=== PATIENT | male | born 1975 | race Caucasian/White ===

== ENCOUNTER → 2023-09-15 00:45 | Outpatient (REF) | payer OTHER, SELFPAY | LOC: DHSLP 00:45 | PROVIDERS: ATTENDING PHYSICIAN Internal Medicine; FAMILY PHYSICIAN Emergency Medicine | DX: G47.33 Obstructive sleep apnea (adult) (pediatric) (principal) | CPT/HCPCS: 95800 ==

== ENCOUNTER → 2024-05-16 06:32 | Outpatient (REF) | payer OTHER, SELFPAY | LOC: RAD 06:32 | PROVIDERS: ATTENDING PHYSICIAN Specialist; FAMILY PHYSICIAN Family Medicine | DX: N13.30 Unspecified hydronephrosis (principal) | CPT/HCPCS: 76770 ==

== ENCOUNTER 2024-09-20 12:52 | Emergency (ER) | payer OTHER, SELFPAY ==
[2024-09-20] VITALS (8 sets, daily range): BP systolic 112–181; BP diastolic 71–91; BMI 29.3
[2024-09-20 13:15] LABS: % Basophils 0.5 % (0-2); % Eosinophils 0.4 % (0-6); % Immature Granulocytes 0.4 % (0-0.5); % Lymphocytes 19.7 % (20.5-51.1); % Monocytes 7.3 % (1.7-9.3); % Neutrophils 71.7 % (42.2-75.2); Absolute Lymphocytes 1.5 10^3/uL (1.2-3.4); Absolute Monocytes 0.5 10^3/uL (0.1-0.6); Absolute Neutrophils 5.3 10^3/uL (1.4-6.5); Hematocrit 46.8 % (39.0-52.0); Hemoglobin 16.1 g/dL (13.0-18.0); Mean Corp Hgb Conc. 34.4 g/dL (33.0-37.0); Mean Corpuscular Hgb 30.7 pg (27.0-31.0); Mean Corpuscular Volume 89.1 fL (80.0-94.0); Mean Platelet Volume 10.7 fL (7.4-10.4); Nucleated Red Blood Cells % 0 % (-); Platelet Count 197 10^3/uL (130-400); Red Blood Cell Count 5.25 10^6/uL (4.70-6.10); Red Cell Dist. Width 12.2 % (11.5-14.5); White Blood Cell Count 7.4 10^3/uL (4.8-10.8)
[2024-09-20 13:32] LABS: ALT (SGPT) 40 U/L (0-50); AST (SGOT) 31 U/L (17-59); Albumin 4.6 g/dl (3.5-5.0); Alkaline Phosphatase 63 U/L (38-126); Blood Urea Nitrogen 16 mg/dl (9-20); Calcium 9.4 mg/dl (8.4-10.2); Carbon Dioxide 28 mmol/L (22-30); Chloride 99 mmol/L (98-107); Glucose 134 mg/dl (70-99); Potassium 3.9 mmol/L (3.5-5.1); Sodium 136 mmol/L (135-145); Total Bilirubin 0.9 mg/dl (0.2-1.3); Total Protein 7.2 g/dl (6.3-8.2); eGFR > 60.00
[2024-09-20 13:43] LABS: Troponin I < 0.012 ng/ml
--- NOTE | 2024-09-20 13:57 | ED.GENMED ---
History of Present Illness
<Zaina Varner PA-C - Last Filed: 09/21/24 08:19>
General
Chief Complaint: Chest Pain
Source: patient
Exam Limitations: none
Time Seen by Provider: 09/20/24 13:21
Nursing documentation reviewed up to this point in time: agreed with
History of Present Illness
History of Present Illness:
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
h/o GERD years ago, hasnt' been taking meds
says that 4 days ago he started with some chest discomfort
which felt like a ache in his L chest
he has had GERD before so he presumed it was that
he had been drinking alcohol when this stated
the following day he had more pain in his L arm as well;
he started usig some advil thinking it may be MSK but then also restarted pantoprazole 40 mg whihc he has been taking twice a day fo ra few days but doesn't feel relief
pain is worse at night, with certain foods and with deep breathing
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
no h/o DVT/PE
no cardiac history but has seen cards for HTN preivuosly
doesn't recall getting endoscopy in the past
no stool changes, sob, fever, chills, cough, syncope, abdominal pain, vomiting.
Past History
<Zaina Varner PA-C - Last Filed: 09/21/24 08:19>
Past History
ED Past Medical History: HTN and Psychiatric
ED Past Surgical History: None
Social History
Tobacco: Smoker
Alcohol: Occasional
Drug: None
Employment: Employed
Review of Systems
<Zaina Varner PA-C - Last Filed: 09/21/24 08:19>
Review of Systems
Allergies reviewed?: Yes
All Other Systems: Not applicable
Phy Exam
<aZina Varner PA-C - Last Filed: 09/21/24 08:19>
Physical Exam
Physical Exam:
GENERAL: Alert , in no apparent distress
EYE: pupils equal and reactive
NECK: Supple
ENT: o/p clr, mmm.
CARDIAC: Regular rate and rhythm .
chest wall: mild tendenrses L upper chest
no rash
LUNGS: Clear breath sounds bilaterally, no acute respiratory distress, no wheezes/rales/rhonchi
ABDOMEN: Soft, without focal tenderness, no r/g, no cvat, normal bowel sounds
NEUROLOGICAL: Alert and oriented, no focal neuro deficits
SKIN: Warm and dry, skin intact.
MUSCULOSKELETAL: No edema, well perfused. neg monica's sign
PSYCH: Normal and appropriate interaction.
Scores
<Zaina Varner PA-C - Last Filed: 09/21/24 08:19>
Heart Score for Chest Pain Patients
Heart Score for Chest Pain Patients: 1
Heart Score Risk: 2.5% MACE over next 6 weeks
<Augusto Fortune PA-C - Last Filed: 09/20/24 19:57>
Heart Score for Chest Pain Patients
STEMI patient?: No
History: Slightly or Non-Suspicious
ECG: Normal
Age: >45 - <65 years
Risk Factors: No Risk Factors
Troponin: </= Normal Limit
Heart Score for Chest Pain Patients: 1
Heart Score Risk: 2.5% MACE over next 6 weeks
Course
<Zaina Varner PA-C - Last Filed: 09/21/24 08:19>
Orders/Labs/Results
Orders:
Orders
09/20/24 12:53
Electrocardiogram (*1) Urgent
Reason for Study: Chest Pain
EKG- Treatment ONCE
09/20/24 13:04
Complete Blood Count/With Diff Urgent
Comprehensive Metabolic Panel Urgent
Lipase Urgent
Comment: ADD ON
Troponin I Urgent
09/20/24 14:03
Add On- LAB Urgent
Tests Added?: lipase
Mag Hydrox/Al Hydrox/Simeth [Maalox] 30 ml Phenobarb/Hyoscy/Atropine/Scop [] 10 ml PO NOW
CR Chest - 2 Views Urgent
Comment:
Reason For Exam: chest pain
09/20/24 14:24
Mag Hydrox/Al Hydrox/Simeth [Maalox] 30 ml .ROUTE .STK-MED ONE
Phenobarb/Hyoscy/Atropine/Scop [] 10 ml .ROUTE .STK-MED ONE
09/20/24 15:22
D-Dimer Urgent
09/20/24 15:59
CT Chest PE Study Urgent
Comment:
Reason For Exam: left pleuritic cp x 4 days
09/20/24 16:12
Electrocardiogram (*1) Urgent
Reason for Study: Chest Pain
EKG- Treatment ONCE
09/20/24 16:27
Troponin I Urgent
Abnormal Lab Results
09/20/24 09/20/24
13:04 15:22
MPV 10.7 H fL
(7.4-10.4)
Lymphocytes % 19.7 L %
(20.5-51.1)
D-Dimer 0.53 H ug/mlFEU
(0.00-0.50)
Glucose 134 H mg/dl
(70-99)
09/20/24 13:04
09/20/24 13:04
Vital Signs
Initial and Last Documented VS:
Initial Vital Signs
Temp Pulse Resp BP Pulse Ox
36.6 C 80 16 181/91 100
09/20/24 12:58 09/20/24 12:58 09/20/24 12:58 09/20/24 12:58 09/20/24 12:58
Last Documented Vital Signs
Temp Pulse Resp BP Pulse Ox
36.6 C 70 12 153/89 96
09/20/24 12:58 09/20/24 18:00 09/20/24 18:00 09/20/24 18:00 09/20/24 17:45
<Augusto Fortune PA-C - Last Filed: 09/20/24 19:57>
Orders/Labs/Results
Orders:
Orders
09/20/24 12:53
Electrocardiogram (*1) Urgent
Reason for Study: Chest Pain
EKG- Treatment ONCE
09/20/24 13:04
Complete Blood Count/With Diff Urgent
Comprehensive Metabolic Panel Urgent
Lipase Urgent
Comment: ADD ON
Troponin I Urgent
09/20/24 14:03
Add On- LAB Urgent
Tests Added?: lipase
Mag Hydrox/Al Hydrox/Simeth [Maalox] 30 ml Phenobarb/Hyoscy/Atropine/Scop [] 10 ml PO NOW
CR Chest - 2 Views Urgent
Comment:
Reason For Exam: chest pain
09/20/24 14:24
Mag Hydrox/Al Hydrox/Simeth [Maalox] 30 ml .ROUTE .STK-MED ONE
Phenobarb/Hyoscy/Atropine/Scop [] 10 ml .ROUTE .STK-MED ONE
09/20/24 15:22
D-Dimer Urgent
09/20/24 15:59
CT Chest PE Study Urgent
Comment:
Reason For Exam: left pleuritic cp x 4 days
09/20/24 16:12
Electrocardiogram (*1) Urgent
Reason for Study: Chest Pain
EKG- Treatment ONCE
09/20/24 16:27
Troponin I Urgent
Abnormal Lab Results
09/20/24 09/20/24
13:04 15:22
MPV 10.7 H fL
(7.4-10.4)
Lymphocytes % 19.7 L %
(20.5-51.1)
D-Dimer 0.53 H ug/mlFEU
(0.00-0.50)
Glucose 134 H mg/dl
(70-99)
09/20/24 13:04
09/20/24 13:04
Vital Signs
Initial and Last Documented VS:
Initial Vital Signs
Temp Pulse Resp BP Pulse Ox
36.6 C 80 16 181/91 100
09/20/24 12:58 09/20/24 12:58 09/20/24 12:58 09/20/24 12:58 09/20/24 12:58
Last Documented Vital Signs
Temp Pulse Resp BP Pulse Ox
36.6 C 70 12 153/89 96
09/20/24 12:58 09/20/24 18:00 09/20/24 18:00 09/20/24 18:00 09/20/24 17:45
Xanderlt;Zaina Varner PA-C - Last Filed: 09/21/24 08:19>
MDM/Problems Addressed
Differential Diagnosis Includes:
acs, gerd, pancreaittis, PE
MDM/Problems Addressed:
48 y/o M with h/o GERD, htn
here with upper L chest pin x 4 days
fairly ocnstnat
started while drinking alohol during [employer] game
pt says he has had persistent pain since and has some heart burn symptoms hadyen well but also pain with breathing
then yesterday had some neck soreness and arm pain and felt that he wasnt sure if this was MSK or anxiety or his heart
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
no h/o CAD
well appearing
mild hypertension
hr normal
ekg nsr 81 bpm, no ischemic chnages
exam mild tendenrses L chest wall
otherwise normal exam
abdomen notnender
lfts/lipase normla
trop neg
d dimer elevated
signed out to [facility] pending CTA
will repeat trop
anticipate d/c home
<Augusto Fortune PA-C - Last Filed: 09/20/24 19:57>
*Radiology
Radiology exam reviewed: radiology read reviewed
*Critical Care Note
Total Time (30-74mins, 75-104mins- exclusive of procedures): Not Applicable
<Augusto Fortune PA-C - Last Filed: 09/20/24 19:57>
Patient Management
Escalation/DeEscalation of care consider admission/obs:
Patient received in signout pending repeat troponin and CTA results. CTA with no acute abnormalities. Repeat troponin is also within normal limits. Patient stable for home and outpatient management. Chest pain hotline notified to help expedite
outpatient follow-up. Patient aware of return precautions to the ER
ED Attending Note
<Zaina Varner PA-C - Last Filed: 09/21/24 08:19>
-
Portions of this chart may have been created with voice recognition software.� Occasional wrong word or��sound alike� substitutions may have occurred due to the inherent limitations of voice recognition software.
Discharge Plan
Departure
Patient Disposition: Home (Routine Discharge)
Date of Disposition: 09/20/24
Time of Disposition: 18:04
Patient with high blood pressure during this ER visit?: Yes
Discharge Problem:
Chest pain, Chest pain due to GERD
Instructions: Acid Reflux and GERD in Adults (DC), Chest Pain PCP Follow Up
Prescriptions:
New
pantoprazole [Protonix] 40 mg tablet,delayed release (DR/EC)
40 mg PO DAILY Qty: 20 0RF
No Action
loratadine 10 MG tablet
10 mg PO DAILY
ibuprofen 200 MG tablet
600 mg PO ONCE
Referrals:
Jaylen Anaya DO [Family Provider] - Follow up in 2-3 days
Shreyas Russell DO [Active] - Follow up in 1 week (cardiology)
Joseph Carr MD [Active] - Follow up in 1 week
Activity Restrictions/Additional Instructions:
Were not sure that entirely the cause of your chest pain, your cardiac enzymes were normal. We ruled out a blood clot. This is likely from acid reflux however you should have an evaluation both by GI doctor and probably by [employer]. Please
call for an appointment for both of the specialist. In the meantime use Protonix 40 mg once a day on an empty stomach for the next 7 days. You can use Maalox 2-3 times a day in between as needed. Return to the ER for sudden worsening of your
pain, shortness of breath, passing out, arm weakness or numbness, vomiting or black stools or any concerns
Interventions
Interventions:
*Risk Screen - Suicide Last Done: 09/20/24 12:58
*General Assessment Last Done: 09/20/24 12:58
*Neglect/Abuse Screening Last Done: 09/20/24 13:33
ED- Fall Risk Assessment Last Done: 09/20/24 13:33
*ED COVID-19 Vaccine History Last Done: 09/20/24 12:58
*Nursing Disposition Last Done: 09/20/24 18:08
ED- Cardiac Assessment Last Done: 09/20/24 13:33
Discharge Date and Time
Discharge Date/Time: 09/20/24 18:17
Print Language: AZERI
[2024-09-20] MEDS: MAALOX 40 PO (14:25)
[2024-09-20 14:35] LABS: Lipase 77 U/L (23-300)
[2024-09-20 15:46] LABS: D-Dimer 0.53 ug/mlFEU (0.00-0.50)
[2024-09-20 17:01] LABS: Troponin I < 0.012 ng/ml
== END 2024-09-20 18:17 | disposition home or self-care (01) ==
LOC: EMR 12:52
PROVIDERS: Emergency Medicine; Physician Assistant; EMERGENCY PHYSICIAN Emergency Medicine; FAMILY PHYSICIAN Family Medicine
DX: R07.89 Other chest pain (principal); K21.9 Gastro-esophageal reflux disease without esophagitis; F17.200 Nicotine dependence, unspecified, uncomplicated; I10 Essential (primary) hypertension
CPT/HCPCS: 99284; 71046; 71275; 80053; 83690; 84484; 85025; 85379; 93005; Q9967

== ENCOUNTER 2024-10-18 06:20 | Day surgery (SDC) | payer OTHER, SELFPAY | END 2024-10-18 11:19 | disposition home or self-care (01) | LOC: GI 06:20 | PROVIDERS: ATTENDING PHYSICIAN Internal Medicine Gastroenterology; FAMILY PHYSICIAN Family Medicine | DX: K29.70 Gastritis, unspecified, without bleeding (principal); K21.9 Gastro-esophageal reflux disease without esophagitis | CPT/HCPCS: 43239; 88305; 88342 ==